=== PATIENT | male | born 1975 | race Caucasian/White ===

== ENCOUNTER 2016-09-15 15:17 | Emergency (ER) | payer OTHER ==
[~2016-09-15] VITALS: Ht 119.4 cm; Wt 52.1 kg
[~2016-09-15 15:17] MED LIST: OXYC-57 PO; TRAM-10 PO
[2016-09-15 15:29] VITALS: TEMP 36.8; Ht 119.4 cm; Wt 52.1 kg
[2016-09-15] MEDS ORDERED: ATIVAN 1MG HOMEPACK PO ONE (15:45)
[2016-09-15] MEDS ORDERED: ATV/1 PO (15:47)
--- NOTE | 2016-09-15 15:47 | EMERGENCY ROOM VISIT NOTE ---
History Report prepared by Jerrod: Bella Ames Under the Supervision of: Dr. Miguel Nuñez M.D. First contact with patient: 15:34 Chief Complaint: OTHER COMPLAINT Stated Complaint: HASN'T SLEPT FOR 5 DAYS History of Present Illness The patient is a 41 year old male who presents to the Emergency Room for a mental health evaluation after having constant sleep deprivation beginning 5 days ago. The patient states that he recently got out of a 12 year relationship and he is moving back into his mother's house. He notes that this most likely triggered his insomnia and he is feeling more anxious than normal. He reports that he has had insomnia and restless legs before but never this bad. He complains of racing thoughts at night, restless legs, and vision changes. He denies any suicidal or homicidal ideation, changes in appetite, and history of depression. The patient notes that he went to urgent care yesterday and they gave him Vistaril that provided no relief of his symptoms. He states that the Vistaril seemed to worsen his leg restlessness. He notes that he took walks and 5 baths last night and was still not able to sleep. Source of History: patient Onset: 5 days ago Position: other (mental health) Symptom Intensity: 5 days Quality: other (sleep deprivation) Timing: constant Modifying Factors (Worsening): other (Vistaril ) Modifying Factors (Relieving): other (none) Note: He complains of racing thoughts at night, restless legs, and vision changes. He denies any suicidal or homicidal ideation, changes in appetite, and history of depression. Review of Systems See HPI for pertinent positives & negatives. A total of 10 systems reviewed and were otherwise negative. Past Medical & Surgical Medical Problems: (1) Dwarfism Family History No pertinent family history stated. Social History Smoking Status: Current Every Day Smoker Alcohol Use: none Marital Status: single Housing Status: lives with family Current/Historical Medications Scheduled PRN Hydroxyzine HCl (Hydroxyzine HCl), 25 MG PO HS PRN for PRN Lorazepam (Ativan), 1-2 MG PO PM PRN for Insomnia Allergies Coded Allergies: No Known Allergies (Unverified , 09/15/16) Physical Exam Vital Signs Date Time Temp Pulse Resp B/P Pulse Ox O2 Delivery O2 Flow Rate FiO2 09/15/16 15:58 114 18 148/116 98 09/15/16 15:29 36.8 113 18 134/81 98 Room Air Physical Exam GENERAL: Patient is mildly anxious appearing and in minimal distress. HEENT: No acute trauma, normocephalic atraumatic, mucous membranes moist, no nasal congestion, no scleral icterus. NECK: No stridor, no adenopathy, no meningismus, trachea is midline. LUNGS: No dyspnea. Clear to auscultation and equal bilaterally. No wheeze, no rhonchi. HEART: Mildly tachycardic rate and rhythm. No murmurs, rubs, gallops appreciated. ABDOMEN: Soft, nontender, bowel sounds positive, no masses appreciated, no peritonitis. BACK: No midline tenderness, no CVA tenderness EXTREMITIES: Normal motion all extremities, no cyanosis, no edema. NEUROLOGIC: Alert and oriented, no acute motor or sensory deficits, no focal weakness, cranial nerves grossly intact. SKIN: No rash, no jaundice, no diaphoresis. PSYCH: Denies suicidal or homicidal ideation. Medical Decision & Procedures Medications Administered Medications (Trade) Dose Ordered Sig/Drew Route Start Time Stop Time Status Last Admin Dose Admin Lorazepam (Ativan 1MG Home Pack) 1 homepack UD ONCE PO 09/15/16 15:45 09/15/16 15:46 DC 09/15/16 15:54 1 HOMEPACK ED Course 1537: The patient was evaluated in room A5. A complete history and physical exam was performed. 1545: Lorazepam 1 homepack PO. 1600: Reevaluated the patient. Discussed results and discharge instructions: The patient verbalized understanding and agreement. The patient is ready for discharge. Medical Decision Differential: Mood Disorder, Overdose, Infectious, Electrolyte Abnormality, Cardiac, Hepatic, Endocrine, Toxicologic, Neurologic, amongst other pathologies entertained. 41 yr old male without significant psych history arrives noting severe insomnia over last few days secondary to stress and thinking about recent relationship that ended. No suicidal/homicidal ideation. No indication for emergent psychiatric admission/evaluation. He wishes to try something stronger than his Vistaril which gives him restless legs. Will try ativan for short course with PCP appointment in next few days already. Discussed instructions/restrictions of ativan. He agrees with this plan. Aware can return at any time if worsening or other concerns. Stable and in no distress at discharge. Impression Primary Impression: Insomnia Scribe Attestation The scribe's documentation has been prepared under my direction and personally reviewed by me in its entirety. I confirm that the note above accurately reflects all work, treatment, procedures, and medical decision making performed by me. Departure Information Dispostion Home / Self-Care Prescriptions Lorazepam (ATIVAN) 1 Mg Tab 1-2 MG PO PM Y for Insomnia, #12 TAB Prov: Miguel Nuñez M.D. 09/15/16 Referrals Elvira Ayala C.R.N.P (PCP) Forms HOME CARE DOCUMENTATION FORM, IMPORTANT VISIT INFORMATION, WORK / SCHOOL INSTRUCTIONS Patient Instructions Insomnia, My [facility] Additional Instructions You have received a benzodiazepine medication prescription. These medications may cause drowsiness and should not be used with other sedative medications. Do not drive, drink alcohol, perform dangerous activities, nor make important decisions after taking these medications. exterminator termite use or inappropriate use may lead to addiction. Problem Qualifiers Primary Impression: Insomnia Insomnia type: primary Qualified Codes: F51.01 - Primary insomnia
[2016-09-15] MEDS ORDERED: ATR25 PO (15:50)
[2016-09-15 15:58] VITALS: BP 148/116; PULSE 114; O2SAT 98
== END 2016-09-15 15:59 | disposition home or self-care (01) ==
LOC: C.EDB 15:20 → C.EDA 15:59
DX: F51.01 Primary insomnia (principal); F17.200 Nicotine dependence, unspecified, uncomplicated